=== PATIENT | female | born 1990 | race American Indian/Alaskan Native ===

== ENCOUNTER 2018-10-12 02:04 | Emergency (ER) | payer MEDICAID, OTHER, SELFPAY ==
--- NOTE | 2018-10-12 02:12 | ED.GENADULT ---
HPI - General Adult General Chief complaint: Extremity Injury, Lower Stated complaint: lumps on left legs moving Time Seen by Provider: 10/12/18 02:09 Source: patient Mode of arrival: ambulatory Limitations: no limitations History of Present Illness HPI narrative: 28-year-old female reports that greater than 1 year ago she sustained injury to her left ankle. She went to go be evaluated in emergency department however was subsequently not evaluated. Since then she has noticed lumps on her left ankle that she state moves around. She has never been evaluated for them. They have been going on for several months. Reason she came in tonight was that she was finally talked into coming in to be evaluated she also states that it hurts to walk Related Data Home Medications Medication Instructions Recorded Confirmed . (No Home Medications) #0 06/18/09 Review of Systems Constitutional Denies fever(s) ENT Ears, Nose, Mouth, and Throat: Denies disequilibrium Musculoskeletal Denies tingling Comments: Lumps on the left ankle Integumentary/Breasts Comments: Redness over 1 of the lump to the left ankle Neurologic Denies tingling and Denies disequilibrium Hematologic/Lymphatic Denies easy bleeding and Denies easy bruising [facility] Medical History Patient denies medical problems (Acute) Social History Smoking Status: Current every day smoker Social History Smoking Status: Current every day smoker Exam Initial Vital Signs Initial Vital Signs: Vital Signs Temperature 97.1 F L 10/12/18 02:14 Pulse Rate 99 H 10/12/18 02:14 Respiratory Rate 20 10/12/18 02:14 Blood Pressure 142/100 H 10/12/18 02:14 Pulse Oximetry 100 10/12/18 02:14 Const General: cooperative, comfortable, well developed and well groomed Resp Effort & Inspection: normal respiratory effort Cardio Pulses: dorsalis pedis present on the left Skin Other: Patient with a small area redness on the distal 1/3 medial aspect of the tibia over 1 of the ?lumps? the patient is concerned about Neuro General: alert Cognition: normal cognition Speech: speech normal Extrem General: normal to inspection and capillary refill normal Psych Appearance: grossly normal and well kempt Course Orders Ordered: ED Orders 10/12/18 02:44 XR ankle LT min 3V Stat Vital Signs - 8 hr 10/12/18 02:14 Temperature 97.1 F L Pulse Rate 99 H Respiratory Rate 20 Blood Pressure 142/100 H Pulse Oximetry 100 Medical Decision Making Imaging Data Ankle x-ray: Attestation: I personally reviewed and interpreted this imaging study as follows: My impression: No fractures, no dislocations MDM Narrative Medical decision making narrative: Bedside ultrasound does not show any abscess. The exam is not consistent with cellulitis. I was not going to obtain an x-ray however the patient requested it. There are no fractures on the x-ray. Her seems to be no acute pathology. Unsure is the exact etiology of the lumps on her leg however do not feel like antibiotics are warranted. No I and D necessary. Patient was given follow-up instructions. Was given a phone number to help establish a primary provider. Will hold on further workup for now. Patient expressed understanding and agreement plan. Discharge Plan Departure Patient Disposition: Home Clinical Impression: Left leg pain Instructions: DI for Leg Pain Activity Restrictions/Additional Instructions: There are no signs of infection or blood clot today. I have low suspicion that these lumps that you are feeling or related to your ankle injury greater than 1 year ago. I do recommend you contact 360 talk with the health human resources benefits coordinator here at the hospital to help you establish a primary provider. Prescriptions: No Action . (No Home Medications) Qty: 0 RF: 0
[2018-10-12 02:14] VITALS: BP 142/100; PULSE 99; RESP 20; TEMP 36.2; O2SAT 100; BMI 40.2
--- NOTE | 2018-10-12 02:25 | PC.NURSE ---
PT states injured left ankle a year and a half ago, has pain and swelling at ankle and calf. Has not been seen for it before. Pt ambulated with steady gait to room, CMS intact with small amount of swelling to RLE.
--- NOTE | 2018-10-12 02:44 | DI.RAD.S_ITS ---
PROCEDURE: XR ANKLE LT MIN 3V INDICATIONS: Pain after injury TECHNIQUE: 3 views of the ankle were acquired. COMPARISON: None. FINDINGS: Bones: No fractures or dislocations. Ankle mortise is normally aligned. No suspicious bony lesions. Soft tissues: No tibiotalar joint effusion. Achilles tendon appears normal. IMPRESSION: Left ankle without acute fracture or dislocation. If there is persistent clinical concern for occult fracture given adequate mechanism of injury, consider repeat imaging in 10-14 days. Dictated by: Warren Lara M.D. on 10/12/2018 at 9:37 Approved by: Warren Lara M.D. on 10/12/2018 at 9:38
--- NOTE | 2018-10-12 02:46 | PC.NURSE ---
RN in room to DC PT, PT and significant other requesting xray of LLE, Dr Tong aware and Xray ordered per pt request.
== END 2018-10-12 03:20 | disposition home or self-care (01) ==
LOC: ED 03:00
PROVIDERS: Emergency Provider Emergency Medicine
DX: M79.605 Pain in left leg (principal)
CPT/HCPCS: 73610; 99282; 99283